=== PATIENT | male | born 1950 | race Asian ===

== ENCOUNTER 2018-01-09 16:51 | Emergency (ER) | payer OTHER ==
[~2018-01-09] VITALS: Ht 167.6 cm; Wt 79.4 kg
[2018-01-09 16:57] VITALS: BP_SYST 154
--- NOTE | 2018-01-09 17:00 | NUR ---
Patient to ER bed 05 to gown for evaluation. Side rails up.
--- NOTE | 2018-01-09 17:05 | NUR ---
Pt was sent by his PMD to follow up for blood work as pt is on blood thinners and had a bloody nose earlier today. Upon arrival to ER, bleeding is controlled, no bleeding noted elsewhere. Pt denies any pain, denies sob, denies nausea / vomiting. Pt [id number], speaking full sentences, ambulatory.
--- NOTE | 2018-01-09 17:20 | NUR ---
ER at bedside examining patient.
[2018-01-09 17:25] VITALS: BP_SYST 155
[2018-01-09] MEDS ORDERED: cloNIDine HCL 0.1 MG TABLET PO ONE (17:30)
[2018-01-09 17:50] LABS: BASOPHILS % (AUTO) 0.3 % (0.0-2.0); EOSINOPHILS # (AUTO) 0.2 K/uL (0.0-0.4); EOSINOPHILS % (AUTO) 3.1 % (0.0-4.0); HEMATOCRIT 39.2 % (36-54); HEMOGLOBIN 13.2 g/dL (14.0-18.0); LYMPHOCYTES % (AUTO) 16.7 % (20.5-51.5); MEAN CORPUSCULAR HEMOGLOBIN 31 pg (27-31); MEAN CORPUSCULAR HGB CONC 34 % (32-36); MEAN CORPUSCULAR VOLUME 93 fL (79.0-98.0); MONOCYTES # (AUTO) 0.7 K/uL (0.0-1.0); MONOCYTES % (AUTO) 11.9 % (1.7-9.3); NEUTROPHILS # (AUTO) 3.9 K/uL (1.8-7.7); PLATELET COUNT (AUTO) 184 K/uL (130-430); RED CELL DISTRIBUTION WIDTH 12.1 % (9.0-15.0); WHITE BLOOD COUNT (AUTO) 5.8 K/uL (4.8-10.8)
[2018-01-09 18:01] LABS: CALCIUM 8.9 mg/dL (8.4-11.0); CREATININE 1.24 mg/dL (0.55-1.30); POTASSIUM 4.3 mmol/L (3.5-5.1)
[2018-01-09 18:04] LABS: INR 0.9 (0.80-1.20); PROTHROMBIN TIME 9.6 SECS (9.5-12.5)
[2018-01-09 18:07] LABS: ALBUMIN 3.7 g/dL (3.4-4.8); TOTAL BILIRUBIN 0.5 mg/dL (0.0-1.0)
== END 2018-01-09 18:20 | disposition home or self-care (01) ==
LOC: SED 16:54
DX: R04.0 Epistaxis (principal); I10 Essential (primary) hypertension
CPT/HCPCS: 36415; 80053; 85025; 85610-TC; 93005; 99285